=== PATIENT | male | born 1965 | race Caucasian/White ===

== ENCOUNTER 2022-06-23 08:37 | Emergency (ER) | payer OTHER ==
[2022-06-23 08:48] VITALS: BP 148/74; PULSE 71; RESP 18; TEMP 97.5; BMI 27.3
[2022-06-23] MEDS ORDERED: LORATADINE 10 MG TABLET PO ONE (08:57)
[2022-06-23] MEDS ORDERED: DEXAMETHASONE SOD PHOSPHATE 10 MG/1 ML VIAL IM ONE (08:57)
[2022-06-23] MEDS ORDERED: LORATADINE 10 MG TABLET ONE (09:06)
[2022-06-23] MEDS ORDERED: DEXAMETHASONE SOD PHOSPHATE 4 MG/1 ML VIAL ONE (09:06)
== END 2022-06-23 10:09 | disposition home or self-care (01) ==
LOC: JER 08:37 → JERFT 08:37
PROC: 3E023GC Introduction of Other Therapeutic Substance into Muscle, Percutaneous Approach (ICD-10-PCS; principal; 2022-06-23)
DX: L30.9 Dermatitis, unspecified (principal)
CPT/HCPCS: 99284-25; J1100